=== PATIENT | female | born 1940 | race African-American/Black ===

== ENCOUNTER → 2016-04-04 | Outpatient (CLI) | payer MEDICARE ==
[~2016-04-04] MED LIST: ABAT125S SQ; AMLO10TA2 PO; ASPI325T70 PO; CALC1TAB PO; CETI10TA22 PO; CYCL10TA2 PO; FERR325T31 PO; HYDR200T PO; LISI-334 PO; MECL25TA3 PO; METO25TA4 PO; PRED5TAB PO; RANI150T2 PO; VITA1CAP PO; WARF5TAB7 PO
--- NOTE | 2016-04-04 15:17 | RAD ---
APPROVED REPORT Patient Location : OUT-PATIENT Indications CHRONIC VENOUS INSUFFICIENCY, GENIA GSV ABLATION DONE 10/2014 Deep System Deep Venous Thrombosis present : No Deep Venous Reflux present : No Findings Bilateral limited grayscale images of the common femoral vein and saphenofemoral junctions in the les ser saphenous veins did not reveal any obvious evidence of reflux. Spectral waveforms and color Dopp ler did not reveal any obvious reflux. The great saphenous vein appears to be atretic consistent wi th previous history of ablation. Critical Notification Critical Value: No <Conclusion> Suspect prior bilateral great saphenous vein ablations without any evidence of persistent reflux at t he level of the saphenofemoral junction and negative reflux in the bilateral lesser saphenous veins.
== END | disposition home or self-care (01) ==
LOC: US 12:37
PROVIDERS: ATTEND Internal Medicine Cardiovascular Disease
DX: I87.2 Venous insufficiency (chronic) (peripheral) (principal)
CPT/HCPCS: 93970

== ENCOUNTER 2016-06-15 22:03 | Emergency (ER) | payer MEDICARE ==
[~2016-06-15] VITALS: Ht 170.2 cm; Wt 99.8 kg
[2016-06-15] MEDS ORDERED: MORPHINE SULFATE 4 MG/ML DISP.SYRIN. IV ONE (23:00)
[2016-06-15] MEDS ORDERED: ONDANSETRON PF 4 MG/2 ML VIAL. IV ONE (23:00)
--- NOTE | 2016-06-15 23:16 | ED.ADGEN ---
Past Medical History Past Medical History: A-Fib, Hypertension, Other Additional Past Medical Histor: rheumatoid arth, headaches, lower back pain. Past Surgical History: Knee Replacement, Pacemaker, Other Additional Past Surgical Histo: bilat knee replacement, right hand tendon repair Alcohol Use: None Drug Use: None Adult General Chief Complaint Chief Complaint: MECHANICAL FALL HPI HPI Patient is a 75 year old -[place] female with history of hypertension, chronic A. fib currently on Coumadin who presents with accidental fall from standing. Patient was walking on a wood deck when she fell backwards landing in a flower bed. Patient was able to hold onto the deck and and gradually lowered herself down in controlled approximately one and a half feet to the floor bed but reports scraping her back on the wood decking. She dates that was controlled fall that happened several hours prior to ED arrival. Patient has taken oxycodone at home 5 hours ago with limited relief of symptoms. She denies hitting her head. She denies headache, neck pain chest pain shortness of breath. No other acute symptoms or complaints. Review of Systems Review of Systems Review symptoms as per history of present illness. All other review symptoms are negative. Current Medications Current Medications Current Medications Medications (Trade) Dose Ordered Sig/Cristian Start Time Stop Time Status Last Admin Dose Admin Morphine Sulfate 4 mg 1X ONCE 06/15/16 23:00 06/15/16 23:01 DC 06/15/16 23:28 4 MG Ondansetron HCl (Zofran) 4 mg 1X ONCE 06/15/16 23:00 06/15/16 23:01 DC 06/15/16 23:26 4 MG Allergies Allergies Allergies Coded Allergies Type Severity Reaction Last Updated Verified No Known Drug Allergies 02/24/13 No Physical Exam Physical Exam Constitutional: Well developed, well nourished, moderate discomfort secondary to pain, non-toxic appearance. HENT: Normocephalic, atraumatic, bilateral external ears [place]. Eyes: PERRL. Neck: Normal range of motion, no tenderness, supple. Cardiovascular:Heart rate regular rhythm, no murmur. Lungs & Thorax: Bilateral breath sounds clear to auscultation. Abdomen: Bowel sounds normal, soft, no tenderness. Skin: Warm, dry, no abrasions or contusions appreciated. Back: No tenderness, no midline tenderness. Right sick lumbar, paravertebral soft tissue tenderness to palpation reproducing patient complaint. Neurologic: Alert and oriented X 3, normal motor function, normal sensory function, no focal deficits noted. Psychologic: Affect normal, judgement normal, mood normal. Current Patient Data Vital Signs Vital Signs Date Time Temp Pulse Resp B/P (MAP) Pulse Ox O2 Delivery O2 Flow Rate FiO2 06/15/16 23:28 20 98 Room Air 06/15/16 22:20 98.7 89 217/100 (139) 98.7 EKG EKG [] Radiology/Procedures Radiology/Procedures [Chest x-ray 2 view: No acute disease Lumbar spine: No acute disease] Impressions: Musculoskeletal pain without evidence of acute bony injury Course & Med Decision Making Course & Med Decision Making Pertinent Labs and Imaging studies reviewed. (See chart for details) [Pain addressed. Patient's INR checked. Recommend continued supportive treatment with PCP follow-up as needed. Return precautions reviewed.] Dragon Disclaimer Dragon Disclaimer This electronic medical record was generated, in whole or in part, using a voice recognition dictation system. EDUARDO MENDOZA DO June 15, 2016 23:16
[2016-06-16 00:37] LABS: BASO # 0.1 x10^3/uL (0.0-0.2); BASO % 1 % (0-3); EOS % 0 % (0-3); HEMATOCRIT 33.5 % (36.0-47.0); HEMOGLOBIN 10.9 g/dL (12.0-15.5); LYMPH % 11 % (24-48); MEAN CORPUSCULAR HEMOGLOBIN 27 pg (25-35); MEAN CORPUSCULAR HGB CONC 32 g/dL (31-37); MEAN CORPUSCULAR VOLUME 83 fL (79-100); MONO % 5 % (0-9); NEUT % 84 % (31-73); PLATELET COUNT 251 x10^3/uL (140-400); RED BLOOD COUNT 4.03 x10^6/uL (3.50-5.40); RED CELL DISTRIBUTION WIDTH 17.2 % (11.5-14.5); WHITE BLOOD COUNT 9.3 x10^3/uL (4.0-11.0)
[2016-06-16 00:46] LABS: INR 2.6 (0.8-1.1)
[2016-06-16 01:15] VITALS: BP 190/87
--- NOTE | 2016-06-16 08:11 | RAD ---
Indication fall, pain. AP and lateral views of the lumbar spine were obtained as well as a coned view targeted to the lumbosacral junction. There is bony demineralization. There is disc space narrowing with associated degenerative endplate changes at L4-5. There is slight anterolisthesis of L4 relative to L5. Mild anterolisthesis of L3 relative to L2 and L2 relative to L1 is also noted. Vertebral height is well maintained. No acute finding is seen. Vascular calcification is noted IMPRESSION: Chronic changes. No acute finding seen
--- NOTE | 2016-06-16 08:13 | RAD ---
Indication chest pain. PA and lateral views of the chest were obtained and are compared to an exam 05/21/2013. Heart size is at the upper limits of normal but unchanged. Pulmonary vasculature is normal. Acute parenchymal infiltrate is not seen. There is no pleural fluid or pneumothorax. Bipolar cardiac pacing device is noted. A significant change compared to the previous exam is not seen. IMPRESSION: No acute or focal process. No significant change
--- NOTE | 2016-06-16 12:09 | EKG ---
[facility] [address] [place] [address] Test Date: 2016-06-15 Test Time: 22:34:06 Pat Name: MATTHIAS MILLER Department: Room: Gender: F Calculation Reviewer: TW EMT : 1940 Requested By: EDUARDO MENDOZA Order Number: [id number] Reading MD: Catarina Vail Measurements Intervals [place] Rate: 76 P: 5 [place]: 208 QRS: -34 QRSD: 142 T: 26 QT: 438 QTc: 498 Interpretive Statements SINUS RHYTHM VENTRICULAR PREMATURE COMPLEX(ES) LEFT ANTERIOR FASCICULAR BLOCK RIGHT BUNDLE BRANCH BLOCK BIFASCICULAR BLOCK Electronically Signed On 06-16-2016 18:23:10 CDT by Catarina Vail
== END 2016-06-16 01:18 | disposition home or self-care (01) ==
LOC: ER 22:03
DX: M79.1 Myalgia (principal); I48.91 Unspecified atrial fibrillation; I10 Essential (primary) hypertension; M06.9 Rheumatoid arthritis, unspecified; Z95.0 Presence of cardiac pacemaker; Z96.653 Presence of artificial knee joint, bilateral
CPT/HCPCS: 36415; 71020; 72100; 85027; 85610; 93005; 96374; 96375; 99285; J2270; J2405

== ENCOUNTER → 2017-04-28 | Outpatient (CLI) | payer MEDICARE | END | disposition home or self-care (01) | LOC: ECHO 09:13 | DX: I48.0 Paroxysmal atrial fibrillation (principal); I08.1 Rheumatic disorders of both mitral and tricuspid valves | CPT/HCPCS: 93306 ==

== ENCOUNTER 2017-06-19 10:14 | Observation (INO) | payer MEDICARE ==
[2017-06-19] MEDS: ASPIRIN CHEWABLE 81 MG TABLET. PO (11:39)
[2017-06-19 11:43] LABS: ADD MAN DIFF? NO
[2017-06-19 11:59] LABS: BASO % 0 % (0-3); EOS % 0 % (0-3); HEMATOCRIT 31.1 % (36.0-47.0); HEMOGLOBIN 10.3 g/dL (12.0-15.5); LYMPH # 1.7 x10^3/uL (1.0-4.8); LYMPH % 11 % (24-48); MEAN CORPUSCULAR HEMOGLOBIN 28 pg (25-35); MEAN CORPUSCULAR HGB CONC 33 g/dL (31-37); MEAN CORPUSCULAR VOLUME 84 fL (79-100); MONO # 1.7 x10^3/uL (0.0-1.1); MONO % 11 % (0-9); NEUT % 78 % (31-73); PLATELET COUNT 251 x10^3/uL (140-400); RED BLOOD COUNT 3.72 x10^6/uL (3.50-5.40); RED CELL DISTRIBUTION WIDTH 17.2 % (11.5-14.5); WHITE BLOOD COUNT 15.4 x10^3/uL (4.0-11.0)
[2017-06-19 12:00] LABS: ANION GAP 13 (6-14); BLOOD UREA NITROGEN 13 mg/dL (7-20); BUN/CREATININE RATIO 13 (6-20); CALCIUM 8.6 mg/dL (8.5-10.1); CARBON DIOXIDE 21 mmol/L (21-32); CHLORIDE 102 mmol/L (98-107); GFR 64.9; GLUCOSE 140 mg/dL (70-99); POTASSIUM 3.4 mmol/L (3.5-5.1); SODIUM 136 mmol/L (136-145)
[2017-06-19 12:06] LABS: ALBUMIN 2.9 g/dL (3.4-5.0); ALBUMIN/GLOBULIN RATIO 0.5 (1.0-1.7); ALK PHOS 68 U/L (46-116); ALT (SGPT) 47 U/L (14-59); AST (SGOT) 31 U/L (15-37); MAGNESIUM 1.7 mg/dL (1.8-2.4); TOTAL BILIRUBIN 1.2 mg/dL (0.2-1.0); TOTAL PROTEIN 8.4 g/dL (6.4-8.2)
[2017-06-19 12:07] LABS: INR 1.5 (0.8-1.1); PROTHROMBIN TIME PATIENT 17.6 SEC (11.7-14.0)
[2017-06-19 12:08] LABS: TROPONINI < 0.017 ng/mL (0.000-0.055)
[2017-06-19 12:14] LABS: NT-PRO BNP 3551 pg/mL (0-449)
[2017-06-19] MEDS ORDERED: CONTRAST GIVEN. MC (12:45)
[2017-06-19] MEDS: IOHEXOL 300 MG/ML 100ML VIAL. IV (13:01)
[2017-06-19] MEDS ORDERED: ONDANSETRON PF 4 MG/2 ML VIAL. IV (15:30)
[2017-06-19] MEDS ORDERED: traMADol 50 MG TABLET PO (15:30)
[2017-06-19] MEDS ORDERED: MORPHINE SULFATE 4 MG/ML DISP.SYRIN. IV (15:30)
[2017-06-19] MEDS ORDERED: hydrALAZINE 20 MG/ML VIAL. IVP (15:30)
[2017-06-19] MEDS ORDERED: ACETAMINOPHEN 325 MG TABLET. PO (15:30)
[2017-06-19] MEDS ORDERED: ALBUTEROL SULFATE 2.5 MG/3 ML NEBU. NEB (15:45)
[2017-06-19] MEDS ORDERED: MAGNESIUM SULFATE 2GM 50 ML IV (16:00)
[2017-06-19] MEDS ORDERED: WARFARIN 5 MG TABLET. PO (16:00)
[2017-06-19 16:25] LABS: TROPONINI 0.024 ng/mL (0.000-0.055)
[2017-06-19] MEDS: WARFARIN 2 MG TABLET. PO (16:33)
[2017-06-19] MEDS: FUROSEMIDE 40 MG/4 ML VIAL. IVP (16:34)
[2017-06-19] MEDS: MAGNESIUM SULFATE 2GM 50 ML IV (16:37)
[2017-06-19] MEDS: POTASSIUM CHLORIDE 20 MEQ TABLET.ER. PO (16:38)
[2017-06-19] MEDS: IPRATRPIUM/ALBUTEROL 0.5/2.5MG 3 ML NEBU. NEB ×2 (17:01→20:51)
[2017-06-19 17:24] LABS: THYROID STIM HORMONE (TSH) 1.196 uIU/mL (0.358-3.74)
[2017-06-19] MEDS ORDERED: FAMOTIDINE 20 MG TABLET. PO (21:00)
[2017-06-19] MEDS: LABETALOL HCL 200 MG TABLET PO (21:37)
[2017-06-20 04:19] LABS: ADD MAN DIFF? NO
[2017-06-20 04:21] LABS: BASO % 0 % (0-3); EOS # 0.2 x10^3/uL (0.0-0.7); EOS % 2 % (0-3); HEMATOCRIT 28.8 % (36.0-47.0); HEMOGLOBIN 9.7 g/dL (12.0-15.5); LYMPH # 1.5 x10^3/uL (1.0-4.8); LYMPH % 14 % (24-48); MEAN CORPUSCULAR HEMOGLOBIN 28 pg (25-35); MEAN CORPUSCULAR HGB CONC 34 g/dL (31-37); MEAN CORPUSCULAR VOLUME 83 fL (79-100); MONO # 1.1 x10^3/uL (0.0-1.1); MONO % 10 % (0-9); NEUT # 7.8 x10^3uL (1.8-7.7); NEUT % 74 % (31-73); PLATELET COUNT 241 x10^3/uL (140-400); RED BLOOD COUNT 3.47 x10^6/uL (3.50-5.40); RED CELL DISTRIBUTION WIDTH 17.4 % (11.5-14.5); WHITE BLOOD COUNT 10.6 x10^3/uL (4.0-11.0)
[2017-06-20 04:30] LABS: INR 1.7 (0.8-1.1); PROTHROMBIN TIME PATIENT 19.4 SEC (11.7-14.0)
[2017-06-20 04:47] LABS: CHOLESTEROL 162 mg/dL (0-200); HDLC 62 mg/dL (40-60); LDLC 92 mg/dL (0-100); NON-HDL CHOLESTEROL 100 mg/dL (0-129); TRIGLYCERIDES 40 mg/dL (0-150); VLDLC 8 mg/dL (0-40)
[2017-06-20 04:59] LABS: CHOLESTEROL/HDL RATIO 2.6
[2017-06-20 05:00] LABS: TROPONINI < 0.017 ng/mL (0.000-0.055)
[2017-06-20] MEDS: IPRATRPIUM/ALBUTEROL 0.5/2.5MG 3 ML NEBU. NEB ×4 (08:15→19:09)
[2017-06-20 08:16] LABS: ANION GAP 9 (6-14); BLOOD UREA NITROGEN 18 mg/dL (7-20); CALCIUM 8.5 mg/dL (8.5-10.1); CARBON DIOXIDE 25 mmol/L (21-32); CHLORIDE 106 mmol/L (98-107); CREATININE 1.2 mg/dL (0.6-1.0); GFR 52.6; GLUCOSE 128 mg/dL (70-99); POTASSIUM 3.8 mmol/L (3.5-5.1); SODIUM 140 mmol/L (136-145)
[2017-06-20] MEDS: FERROUS SULFATE 325 MG TABLET. PO (08:27)
[2017-06-20] MEDS: PANTOPRAZOLE 40 MG TABLET.DR. PO (08:27)
[2017-06-20] MEDS: LABETALOL HCL 200 MG TABLET PO ×2 (08:27→22:08)
[2017-06-20] MEDS: CHOLECALCIFEROL (VITAMIN D3) 1,000 UNIT TABLET PO (08:28)
[2017-06-20] MEDS: ASPIRIN ENTERIC COATED 325 MG TABLET.DR. PO (08:29)
[2017-06-20] MEDS: VITAMIN B COMPLEX TABLET. PO (08:29)
[2017-06-20] MEDS: CALCIUM CARB/VIT D3 500/200 TABLET. PO (08:29)
[2017-06-20] MEDS: CETIRIZINE HCL 10 MG TABLET. PO (08:29)
[2017-06-20] MEDS: amLODIPine BESYLATE 10 MG TABLET PO (08:30)
[2017-06-20] MEDS: LOSARTAN POTASSIUM 50 MG TABLET. PO (08:30)
[2017-06-20] MEDS: FUROSEMIDE 40 MG/4 ML VIAL. IVP ×2 (08:31→14:48)
[2017-06-20] MEDS ORDERED: HYDROXYCHLOROQUINE 200 MG TABLET PO (09:00)
[2017-06-20] MEDS ORDERED: MECLIZINE HCL 12.5 MG TABLET. PO (09:00)
[2017-06-20] MEDS ORDERED: LISINOPRIL 20 MG TABLET PO (09:00)
[2017-06-20] MEDS ORDERED: predniSONE 5 MG TABLET PO (09:00)
[2017-06-20] MEDS ORDERED: predniSONE 20 MG TABLET PO (09:00)
[2017-06-20] MEDS ORDERED: METOPROLOL TART IMMED RELEASE 25 MG TABLET. PO (09:00)
[2017-06-20] MEDS: REGADENOSON 0.4 MG/5 ML DISP.SYRIN. IV (12:40)
[2017-06-20 16:17] LABS: BILIRUBIN,URINE NEGATIVE (NEG); CLARITY,URINE CLEAR; COLOR,URINE YELLOW; GLUCOSE,URINE NEGATIVE (NEG); NITRITE,URINE NEGATIVE (NEG); PH,URINE 5.5; PROTEIN,URINE NEGATIVE (NEG-TRACE); UROBILINOGEN,URINE 0.2 mg/dL (0.2 mg/dL)
[2017-06-20 16:33] LABS: BACTERIA,URINE FEW /HPF (0-FEW); RBC,URINE 0 /HPF (0-2); SQUAMOUS EPITHELIAL CELL,UR OCC /LPF; WBC,URINE OCC /HPF (0-4)
[2017-06-20] MEDS: WARFARIN 2 MG TABLET. PO (17:21)
[2017-06-20] MEDS ORDERED: BENZONATATE 100 MG CAPSULE. PO (20:00)
[2017-06-20] MEDS ORDERED: guaiFENesin ORAL 200 MG/10 ML LIQUID. PO (21:15)
[2017-06-20] MEDS: guaiFENesin DM 200MG/20MG 10 ML SYRUP PO (22:07)
[2017-06-21 04:52] LABS: ADD MAN DIFF? NO
[2017-06-21 05:03] LABS: BASO % 0 % (0-3); EOS # 0.4 x10^3/uL (0.0-0.7); EOS % 4 % (0-3); HEMATOCRIT 26.9 % (36.0-47.0); HEMOGLOBIN 9.2 g/dL (12.0-15.5); LYMPH # 1.3 x10^3/uL (1.0-4.8); LYMPH % 14 % (24-48); MEAN CORPUSCULAR HEMOGLOBIN 28 pg (25-35); MEAN CORPUSCULAR HGB CONC 34 g/dL (31-37); MEAN CORPUSCULAR VOLUME 83 fL (79-100); MONO # 0.7 x10^3/uL (0.0-1.1); MONO % 8 % (0-9); NEUT # 6.6 x10^3uL (1.8-7.7); NEUT % 73 % (31-73); PLATELET COUNT 240 x10^3/uL (140-400); RED BLOOD COUNT 3.23 x10^6/uL (3.50-5.40); RED CELL DISTRIBUTION WIDTH 17.1 % (11.5-14.5)
[2017-06-21] MEDS: DOCUSATE SODIUM 100 MG CAPSULE. PO (05:06)
[2017-06-21 05:29] LABS: ANION GAP 10 (6-14); BLOOD UREA NITROGEN 21 mg/dL (7-20); CALCIUM 8.2 mg/dL (8.5-10.1); CARBON DIOXIDE 24 mmol/L (21-32); CHLORIDE 103 mmol/L (98-107); CREATININE 1.2 mg/dL (0.6-1.0); GFR 52.6; GLUCOSE 137 mg/dL (70-99); POTASSIUM 3.8 mmol/L (3.5-5.1); SODIUM 137 mmol/L (136-145)
[2017-06-21 05:30] LABS: INR 1.4 (0.8-1.1); PROTHROMBIN TIME PATIENT 16.7 SEC (11.7-14.0)
[2017-06-21] MEDS: CETIRIZINE HCL 10 MG TABLET. PO (08:01)
[2017-06-21] MEDS: CALCIUM CARB/VIT D3 500/200 TABLET. PO (08:01)
[2017-06-21] MEDS: CHOLECALCIFEROL (VITAMIN D3) 1,000 UNIT TABLET PO (08:01)
[2017-06-21] MEDS: PANTOPRAZOLE 40 MG TABLET.DR. PO (08:01)
[2017-06-21] MEDS: FERROUS SULFATE 325 MG TABLET. PO (08:02)
[2017-06-21] MEDS: ASPIRIN ENTERIC COATED 325 MG TABLET.DR. PO (08:02)
[2017-06-21] MEDS: LOSARTAN POTASSIUM 50 MG TABLET. PO (08:03)
[2017-06-21] MEDS: LABETALOL HCL 200 MG TABLET PO (08:05)
[2017-06-21] MEDS: amLODIPine BESYLATE 10 MG TABLET PO (08:06)
[2017-06-21] MEDS: VITAMIN B COMPLEX TABLET. PO (08:13)
[2017-06-21] MEDS: FUROSEMIDE 40 MG TABLET. PO (08:13)
[2017-06-21] MEDS: IPRATRPIUM/ALBUTEROL 0.5/2.5MG 3 ML NEBU. NEB ×2 (09:01→12:00)
[2017-06-21] MEDS ORDERED: BUDESONIDE 0.5 MG/2 ML NEBU. NEB (20:00)
== END 2017-06-21 14:36 | disposition home or self-care (01) ==
LOC: ER 10:14 → 2 SOUTH 12:45
DX: R07.89 Other chest pain (principal); D64.9 Anemia, unspecified; M06.9 Rheumatoid arthritis, unspecified; I50.43 Acute on chronic combined systolic (congestive) and diastolic (congestive) heart failure; I48.0 Paroxysmal atrial fibrillation; I11.0 Hypertensive heart disease with heart failure; E66.01 Morbid (severe) obesity due to excess calories; J40 Bronchitis, not specified as acute or chronic; E87.6 Hypokalemia; E83.42 Hypomagnesemia; Z96.653 Presence of artificial knee joint, bilateral; Z79.52 Long term (current) use of systemic steroids; Z82.49 Family history of ischemic heart disease and other diseases of the circulatory system; Z83.3 Family history of diabetes mellitus; Z68.34 Body mass index [BMI] 34.0-34.9, adult; Z79.01 Long term (current) use of anticoagulants; Z79.82 Long term (current) use of aspirin
CPT/HCPCS: 36415; 71045; 71275; 78452; 80048; 80053; 80061; 81001; 83735; 83880; 84443; 84484; 85025; 85379; 85610; 87040; 87086; 93005; 93017; 93308; 94640; 94760; 96365; 96366; 96367; 96374; 96375; 96376; 97162-GP; 97165-GO; 99285-25; A9500; G0378; G0379; G8978-CK-GP; G8979-CI-GP; G8987-CJ-GO; G8989-CJ-GO; J1940; J1956; J2785; J3475; J7620; Q9967

== ENCOUNTER 2017-08-05 08:04 | Outpatient (CLI) | payer MEDICARE ==
[2017-08-05 09:16] LABS: HEMATOCRIT 31.8 % (36.0-47.0); HEMOGLOBIN 10.7 g/dL (12.0-15.5); MEAN CORPUSCULAR HEMOGLOBIN 28 pg (25-35); MEAN CORPUSCULAR HGB CONC 34 g/dL (31-37); MEAN CORPUSCULAR VOLUME 83 fL (79-100); PLATELET COUNT 305 x10^3/uL (140-400); RED BLOOD COUNT 3.85 x10^6/uL (3.50-5.40); RED CELL DISTRIBUTION WIDTH 17.2 % (11.5-14.5); WHITE BLOOD COUNT 4.8 x10^3/uL (4.0-11.0)
[2017-08-05 09:27] LABS: INR 2.9 (0.8-1.1); PROTHROMBIN TIME PATIENT 29.4 SEC (11.7-14.0)
[2017-08-05 09:36] LABS: ANION GAP 8 (6-14); BLOOD UREA NITROGEN 14 mg/dL (7-20); CARBON DIOXIDE 28 mmol/L (21-32); CHLORIDE 108 mmol/L (98-107); GFR 64.9; GLUCOSE 125 mg/dL (70-99); POTASSIUM 4.8 mmol/L (3.5-5.1); SODIUM 144 mmol/L (136-145)
[2017-08-05] MEDS ORDERED: LIDOCAINE 2% 20 ML VIAL. (09:41)
[2017-08-05] MEDS ORDERED: IODIXANOL 320 MG/ML 100 ML VIAL. (09:41)
[2017-08-05] MEDS: MIDAZOLAM HCL/PF 2 MG/2 ML VIAL. IV (09:45)
[2017-08-05] MEDS: fentaNYL PF VIAL 100 MCG/2 ML VIAL IV (09:45)
[2017-08-05] MEDS ORDERED: NITROGLYCERIN 200 MCG/2 ML SYRINGE FOR CATH/VASC LAB. (09:46)
[2017-08-05] MEDS ORDERED: CONTRAST GIVEN. MC (10:00)
[2017-08-05] MEDS: NITROGLYCERIN 200 MCG/2 ML SYRINGE FOR CATH/VASC LAB. IART (10:22)
[2017-08-05] MEDS: VERAPAMIL 5 MG/2 ML VIAL. IART (10:23)
[2017-08-05] MEDS: IODIXANOL 320 MG/ML 100 ML VIAL. IART (10:23)
[2017-08-05] MEDS: HEPARIN for IV BOLUS 10,000 UNIT/10 ML VIAL. IART (10:26)
[2017-08-05] MEDS ORDERED: IV 1/2 NORMAL SALINE 1,000 ML IV (11:00)
== END 2017-08-05 12:45 | disposition home or self-care (01) ==
LOC: CCL 08:04
DX: I20.0 Unstable angina (principal); I49.5 Sick sinus syndrome; I48.0 Paroxysmal atrial fibrillation; M06.9 Rheumatoid arthritis, unspecified; I87.2 Venous insufficiency (chronic) (peripheral); I11.0 Hypertensive heart disease with heart failure; I50.43 Acute on chronic combined systolic (congestive) and diastolic (congestive) heart failure; J40 Bronchitis, not specified as acute or chronic; Z95.0 Presence of cardiac pacemaker; Z96.653 Presence of artificial knee joint, bilateral; E66.01 Morbid (severe) obesity due to excess calories; Z68.34 Body mass index [BMI] 34.0-34.9, adult; Z79.01 Long term (current) use of anticoagulants; Z79.82 Long term (current) use of aspirin; Z79.52 Long term (current) use of systemic steroids; Z83.3 Family history of diabetes mellitus; Z82.49 Family history of ischemic heart disease and other diseases of the circulatory system
CPT/HCPCS: 36415; 80048; 85027; 85610; 93458; 99152; 99153; C1769; C1892; J1644; J2250; J3010; J3490

== ENCOUNTER → 2018-09-09 | Outpatient (CLI) | payer MEDICARE ==
[2017-08-05 12:10] VITALS: BP 119/86
[~2018-09-09] MED LIST changes: -AMLO10TA2 PO; +AMLO10TA8 PO; +ASPI325T11 PO; +CHOL10003 PO; +FERR-36 PO; -FERR325T31 PO; +FURO40TA4 PO; +GUAI5SYR PO; -HYDR200T PO; +HYDR200T71 PO; +LABE200T4 PO; +LOSA-73 PO; +OMEP20TA8 PO; +WARF-31 PO; +WARF2TAB96 PO; -WARF5TAB7 PO
--- NOTE | 2018-09-09 11:37 | CARD ---
MR#: [id number] Date of Study: 09/09/2018 Ordering Physician: CAMMIE LAWSON, Referring Physician: CAMMIE LAWSON Tech: Jacqui Stephens RDCS APPROVED REPORT EXAM: Two-dimensional and M-mode echocardiogram with Doppler and color Doppler. Other Information Quality : AverageHR: 67bpm Rhythm : Other INDICATION SSS 2D DIMENSIONS RVDd3.5 (2.9-3.5cm)Left Atrium(2D)3.5 (1.6-4.0cm) IVSd1.4 (0.7-1.1cm)Aortic Root(2D)3.0 (2.0-3.7cm) LVDd4.2 (3.9-5.9cm)LVOT Diameter1.8 (1.8-2.4cm) PWd1.0 (0.7-1.1cm)LVDs2.5 (2.5-4.0cm) FS (%) 40.4 %SV55.8 ml LVEF(%)70.0 (>50%) Aortic Valve AoV Peak Cullen.143.4cm/sAoV VTI34.0cm AO Peak GR.8.2mmHgLVOT Peak Cullen.125.8cm/s AO Mean GR.5mmHgAVA (VMAX)2.26cm2 Mitral Valve MV E Bkhlriot568.6cm/sMV E Peak Gr.6mmHg MV DECEL [id number] A Tijjarwr103.9cm/s MV E Mean Gr.4mmHgE/A Ratio1.0 Pulmonary Valve PV Peak Vzhptzzi53.2cm/s Tricuspid Valve TR P. Clesippb184rp/sRAP IXEVUJTI3zzKa TR Peak Gr.28vqZaOJGX86ckGz LEFT VENTRICLE The left ventricle is normal size. Proximal septal thickening is noted. The left ventricular systolic function is normal. The Ejection Fraction is 65-70%. There is normal LV segmental wall motion. Trans mitral Doppler flow pattern is Grade II-pseudonormal filling dynamics. RIGHT VENTRICLE The right ventricle is normal size. There is normal right ventricular wall thickness. The right ventr icular systolic function is normal. ATRIA The left atrium size is normal. The right atrium size is normal. The interatrial septum is intact wit h no evidence for an atrial septal defect or patent foramen ovale as noted on 2-D or Doppler imaging. AORTIC VALVE The aortic valve is calcified but opens well. The aortic valve is trileaflet. Doppler and Color Flow revealed trace aortic regurgitation. There is no significant aortic valvular stenosis. There is no ao rtic valvular vegetation. MITRAL VALVE Mitral annular calcification is mild to moderate. There is no evidence of mitral valve prolapse. Ther e is no mitral valve stenosis. Doppler and Color-flow revealed mild mitral regurgitation. TRICUSPID VALVE The tricuspid valve is normal in structure and function. Doppler and Color Flow revealed trace tricus pid regurgitation. The PA pressure was estimated at 32 mmHg. There is no tricuspid valve prolapse or vegetation. There is no tricuspid valve stenosis. PULMONIC VALVE The pulmonic valve is not well visualized. GREAT VESSELS The aortic root is normal in size. The ascending aorta is normal in size. The IVC is normal in size a nd collapses >50% with inspiration. PERICARDIAL EFFUSION There is no evidence of significant pericardial effusion. Critical Notification Critical Value: No <Conclusion> The left ventricular systolic function is normal. The Ejection Fraction is 65-70%. There is normal LV segmental wall motion. Mild mitral regurgitation. Trace tricuspid regurgitation. The PA pressure was estimated at 32 mmHg. There is no evidence of significant pericardial effusion. Signed by : Cammie Lawson, Electronically Approved : 09/09/2018 11:36:48
== END | disposition home or self-care (01) ==
LOC: ECHO 10:23
PROVIDERS: ATTEND Internal Medicine Cardiovascular Disease
DX: I49.5 Sick sinus syndrome (principal); I08.0 Rheumatic disorders of both mitral and aortic valves
CPT/HCPCS: 93306

== ENCOUNTER → 2018-09-28 | Outpatient (CLI) | payer MEDICARE ==
[2017-08-05 12:10] VITALS: BP 119/86
--- NOTE | 2018-09-29 11:18 | RAD ---
MR#: [id number] Date of Study: 09/28/2018 Ordering Physician: CAMMIE CARRASCO, Referring Physician: CAMMIE CARRASCO, Tech: Dewey Aldana MBA, RDMS, RVT, RDCS, RTR APPROVED REPORT Patient Location: OUT-PATIENT Indications Uncontrolled HTN Renal Artery Doppler Right Renal Artery Left Renal Arter y Proximal Proximal 110.0/17.0 cm/sec Mid 190.0/44.0 cm/secMid 115.0/25.0 cm/sec Distal 116.0/20.0 cm/secDistal 115.0/27.0 cm/sec Renal/Aorta Ratio 1.21Renal/Aorta Ratio 11.00 Prox. Resistive Index Prox. Resistive Index 0.84 Mid Resistive Index 0.77Mid Resistive Index 0.78 Distal Resistive Index 0.82Distal Resistive Index 0.77 Rt. Segmental A. 24.0/7.0 cm/secLt. Segmental A. 46.0/9.0 cm/sec Renal Measurements RightLeft Kidney Length9.9 cm cmKidney Length Right Additional FindingsLeft Additional Findings Aortic Doppler VelocityWaveform Mid. Aorta 157.0 cm/sec Findings Grayscale images of the aorta and renal arteries were limited due to bowel gas. Grossly no obvious renal artery stenosis is noted. Normal velocities are obtained in the middle and d istal right renal artery in the proximal middle and distal left renal artery. Normal aortic velocitie s are noted. Normal renal to aortic ratios. Bilateral kidney sizes grossly within normal limits. Critical Notification Critical Value: No <Conclusion> 1. No significant renal artery stenosis. Signed by : Rodolfo Baird, Electronically Approved : 09/29/2018 11:17:59
== END | disposition home or self-care (01) ==
LOC: US 11:00
PROVIDERS: ATTEND Internal Medicine Cardiovascular Disease
DX: I10 Essential (primary) hypertension (principal)
CPT/HCPCS: 93975

== ENCOUNTER → 2019-09-22 | Outpatient (CLI) | payer MEDICARE ==
[2017-08-05 12:10] VITALS: BP 119/86
[~2019-09-22] MED LIST changes: -CETI10TA22 PO; +CETI10TA24 PO; +MECL-75 PO; -MECL25TA3 PO
--- NOTE | 2019-09-23 11:23 | CARD ---
MR#: [id number] Date of Study: 09/22/2019 Ordering Physician: CAMMIE CARRASCO, Referring Physician: CAMMIE CARRASCO, Tech: Barbara Maurer APPROVED REPORT EXAM: Two-dimensional and M-mode echocardiogram with Doppler and color Doppler. Other Information Quality : AverageHR: 85bpm INDICATION Arrhythmia Sick Sinus Syndrome Surgery/Intervention Pacemaker: RISK FACTORS Hypertension 2D DIMENSIONS RVDd3.3 (2.9-3.5cm)Left Atrium(2D)3.0 (1.6-4.0cm) IVSd1.0 (0.7-1.1cm)Aortic Root(2D)3.1 (2.0-3.7cm) LVDd4.5 (3.9-5.9cm)LVOT Diameter2.0 (1.8-2.4cm) PWd1.3 (0.7-1.1cm)LVDs3.0 (2.5-4.0cm) FS (%) 31.6 %SV54.1 ml LVEF(%)59.8 (>50%) Aortic Valve AoV Peak Cullen.140.6cm/sAoV VTI28.1cm AO Peak GR.7.9mmHgLVOT Peak Cullen.125.2cm/s LVOT VTI 26.22cmAO Mean GR.5mmHg NAVI (VMAX)2.13ig5ASP (VTI)3.02cm2 Mitral Valve MV E Btppowdz515.2cm/sMV E Peak Gr.141mmHg MV DECEL [id number] A Shxopusp727.7cm/s MV E Mean Gr.4mmHgMV UEL43du E/A Ratio1.0MVA (PHT)3.19cm2 TDI E/Lateral E'11.5E/Medial E'14.4 Pulmonary Valve PV Peak Vdfeaghn89.1cm/sPV Peak Grad.4mmHg Tricuspid Valve TR P. Wfkaydzz035qg/sRAP TVAMFUBW0pfDj TR Peak Gr.90wnDsSIHI45flLl LEFT VENTRICLE The left ventricle is normal size. There is borderline to mild concentric left ventricular hypertroph y. The left ventricular systolic function is mildly reduced. EF 45%. Septal motion suggestive of cond uction defect. The distal LV is moderately hypokinetic. Transmitral Doppler flow pattern is Grade I-a bnormal relaxation pattern. RIGHT VENTRICLE The right ventricle is normal size. There is normal right ventricular wall thickness. The right ventr icular systolic function is normal. There is a pacemaker lead in the right ventricle. ATRIA The left atrium is mildly dilated. The right atrium is mildly dilated. The interatrial septum is inta ct with no evidence for an atrial septal defect or patent foramen ovale as noted on 2-D or Doppler im aging. AORTIC VALVE The aortic valve is calcified but opens well. Doppler and Color Flow revealed no significant aortic r egurgitation. There is no significant aortic valvular stenosis. Calculated aortic valve area is 2.8 c m2 with maximum pressure gradient of 8 mmHg and mean pressure gradient of 5 mmHg. MITRAL VALVE The mitral valve is mildly to moderately thickened. There is no evidence of mitral valve prolapse. Mi tral Valve mean gradient is 4.4 mmHg suggestive of mild stenosis. Doppler and Color-flow revealed tra ce to mild mitral regurgitation. TRICUSPID VALVE The tricuspid valve is normal in structure and function. Doppler and Color Flow revealed trace tricus pid regurgitation with an estimated PAP of 31 mmHg. There is no tricuspid valve stenosis. PULMONIC VALVE The pulmonic valve is not well visualized. Doppler and Color Flow revealed trace pulmonic valvular re gurgitation. There is no pulmonic valvular stenosis. GREAT VESSELS The aortic root is normal in size. The IVC is normal in size and collapses >50% with inspiration. PERICARDIAL EFFUSION There is no evidence of significant pericardial effusion. Critical Notification Critical Value: No <Conclusion> Septal motion suggestive of conduction defect. The distal LV is moderately hypokinetic. The left ventricular systolic function is mildly reduced. EF 45%. There is a pacemaker lead in the right ventricle. Mitral Valve mean gradient is 4.4 mmHg suggestive of mild stenosis. Signed by : Rodolfo Baird, Electronically Approved : 09/23/2019 11:23:18
== END | disposition home or self-care (01) ==
LOC: ECHO 10:58
PROVIDERS: ATTEND Internal Medicine Cardiovascular Disease
DX: I08.0 Rheumatic disorders of both mitral and aortic valves (principal); I49.5 Sick sinus syndrome; Z95.0 Presence of cardiac pacemaker
CPT/HCPCS: 93306

== ENCOUNTER → 2019-10-19 | Outpatient (CLI) | payer MEDICARE ==
[2017-08-05 12:10] VITALS: BP 119/86
[~2019-10-19] MED LIST changes: -CETI10TA24 PO; +CETI10TA74 PO; +REGADENOSON 0.4 MG/5 ML DISP.SYRIN. IV ONE
--- NOTE | 2019-10-19 13:47 | RAD ---
MR#: [id number] Date of Study: 10/19/2019 Ordering Physician: CAMMIE CARRASCO, Referring Physician: NEELAM ALEXANDER Tech: JELENA Sofia, ARRRitika (R) (N) APPROVED REPORT Test Type: Pharmacological Stress Nurse/Tech: Jessie Martinez R.N. Test Indications: paroxysmal afib Cardiac History: afib,htn, PPM Medications: See Electronic Medical Record Medical History: See Electronic Medical Record Resting ECG: vpaced Resting Heart Rate: 74 bpm Resting Blood Pressure: 189/89mmHg Pretest Chest Pain: No chest pain Nurse/Tech Notes S1S2, lungs cta Consent: The procedure was explained to the patient in lay terms. Informed consent was witnessed. Evan eout was entered into [employer]. History and Stress Test performed by RT Tyler (R) (N) Pharm. Details Pharmacologic stress testing was performed using 0.4mg per 5ml of regadenoson given intravenously ove r 7-10 seconds. Stress Symptoms SOA POST EXERCISE Reason for Termination: Infusion complete Max HR: 84 bpm Max Blood Pressure: 179/84mmHg Blood Pressure response to exercise: Normal blood pressure response during stress. Heart Rate response to exercise: wnl Chest Pain: No. Arrhythmia: No. occ. pvc noted ST Change: No. INTERPRETATION Stress EKG Conclusion: Non-diagnostic EKG due to pacing artifact Imaging Protocol IMAGE PROTOCOL: Rest Tc-99m/stress Tc-99m 1 day Rest: Stress: Viability: Radiopharm.Tc99m TcahvhyyeFh42g Sestamibi Bfxj87kBj 33mCi Img Date 10/19/2019 10/19/2019 Rest Admin Site:IV - Left HandAdministrator:RT Tyler (R)(N) Stress Admin Site: IV - Left HandAdministrator: RT Tyler (Pollo)(N) STRESS DATA End Diast. Vol.119.0mlAv. Heart Rate77.0bpm End Syst. Vol.36.0mlCO Index BSA0.0L/min Myocardial Hhos037.0gEject. Iebvlhfj02.0% Stress Rates Pk. Fill Rate3.91EDV/secLVtime Pk. Fill 199.66msec Pk. Empty Rate3.98ESV/secLVtime Pk. Elhyi416.50msec /3 Pk. Fill1.33EDV/sec Stress Scores Regional WT0.00Summed WT10.00 Regional WM0.00Summed WM1.00 LV Perfusion There is a small FIXED inferior wall defect without active ischema. Wall Motion Normal wall motion. EF > 55% LV Perf. Quant 17 Seg. SSS7.00 17 Seg. SRS6.00 17 Seg. SDS3.00 Stress Defect Extent (% LAD)4.40Rest Defect Extent (% LAD)8.80Rev. Defect Extent (% LAD)1.90 Stress Defect Extent (% LCX) 23.80Rest Defect Extent (% LCX)0.00Rev. Defect Extent (% LCX)21.30 Stress Defect Extent (% RCA)25.60Rest Defect Extent (% RCA)16.70Rev. Defect Extent (% RCA)8.90 Stress Defect Extent (% GONZALO)15.20Rest Defect Extent (% GONZALO)10.90Rev. Defect Extent (% GONZALO)8.30 Other Information Quality:Average Risk Assessment: Low Risk Conclusion 1. Non-diagnostic EKG due to pacing artifact 2. Fixed inferior wall defect without active ischemia. 3. Normal EF at > 55% 4. Low risk study Signed by : Rodolfo Baird, Electronically Approved : 10/19/2019 13:46:48
== END | disposition home or self-care (01) ==
LOC: NM 09:04
PROVIDERS: ATTEND Internal Medicine Cardiovascular Disease
DX: I48.91 Unspecified atrial fibrillation (principal); I10 Essential (primary) hypertension
CPT/HCPCS: 78452; 93017; A9500; J2785

== ENCOUNTER → 2020-04-18 | Outpatient (CLI) | payer MEDICARE ==
[2017-08-05 12:10] VITALS: BP 119/86
[~2020-04-18] MED LIST changes: +AMLO-187 PO; -AMLO10TA8 PO; +FURO-69 PO; +HYDR200T5 PO; -LISI-334 PO; +LISI20TA18 PO; +OXYC1TAB22 PO; -REGADENOSON 0.4 MG/5 ML DISP.SYRIN. IV ONE; +TURM500C4 PO; +UBID10CA5 PO; +WARF2.5T71 PO
--- NOTE | 2020-04-18 15:03 | PDOC1 ---
INITIAL PAIN CONSULT DATE OF SERVICE: DOS: DATE: 04/18/20 TIME: 14:54 CHIEF COMPLAINT: Chief Complaint: Low back and right lower extremity pain HISTORY OF PRESENT ILLNESS: 79-year-old female presents history of pain in the low back right lower extremity for many years worse over the past few months as she is getting ready to have a right knee revision and has had significant pain in the low back rating the right posterior gluteus posterior lateral thigh lateral anterior thigh anteromedial thigh medial knee medial lower leg and into the foot involving the toes on the right side. Patient reports left side is nontender and is much worse on the right with walking standing changing position especially getting up from seated position or getting out of bed first thing in the morning when she standing the pain is excruciating. Patient reports it does keep her up at night at least once or twice wakens her from sleep does not affect her bowel bladder control as she has some stress incontinence pre- existing. Patient not had any recent physical therapies no recent chiropractic treatments or other modalities except for oxycodone which generally helps her in the past but most recently patient reports is making her feel dizzy and nauseous. Patient not taken it for several days because of this. Patient has had CT scan and lumbar spine films in the past showing degenerative disc disease with spinal stenosis at the L4-5 and L5-S1 levels. Patient reports the pain is now constant intermittent intensity but always present radiating to the right lower extremity is described aching and burning at times as well as cramping in the leg as well. Patient reports a disability rating 0-10 10 being the worst is a 10 with recreational activities 9 with social activity and life support activities and 8 with self-care activities. Patient presents in a wheelchair today and is using a cane when she ambulates and holds it in her right hand. PAST MEDICAL HISTORY: PMH: Hypertension, arthritis, osteoporosis, cataracts PREVIOUS SURGERIES: Past Surgical Hx: Cataract extraction bilaterally, pacemaker placement, bilateral knee replaceme nts, right hand surgery. CURRENT MEDICATIONS: Current Meds: Active Scripts Medications Dose Route/Sig Max Daily Dose Days Date Category Hydroxychloroquine Sulfate 200 Mg Tablet 200 Mg PO DAILY 04/18/20 Reported Turmeric 500 mg Capsule (Turmeric/Turmeric Root Extract) 1 Each Capsule 3 Each PO DAILY 04/18/20 Reported Co Q-10 (Ubidecarenone) 10 Mg Capsule 1 Cap PO DAILY 30 04/18/20 Reported Percocet 10-325 Mg Tablet (Oxycodone/Acetaminophen) 1 Each Tablet 1 Tab PO PRN Q4-6HRS PRN MDD 6 Tablet(s) 5 04/18/20 Reported Warfarin Sodium 2.5 Mg Tablet 2.5 Mg PO DAILY 04/18/20 Reported Warfarin Sodium 5 Mg Tablet 5 Mg PO Friday04/18/20 Reported Lasix (Furosemide) 20 Mg Tablet 10 Mg PO DAILY 04/18/20 Reported Omeprazole 20 Mg Tablet.dr 20 Mg PO DAILY 06/20/17 Reported Losartan Potassium 50 Mg Tablet 50 Mg PO DAILY 06/20/17 Reported Labetalol Hcl 200 Mg Tablet 1 Tab PO BID 06/19/17 Reported ALLERGIES; Allergies: Coded Allergies: I S O L A T I O N *CONTACT* (Verified Allergy, Unknown, 06/20/16) mrsa No Known Medication Allergies (Verified Allergy, Unknown, 06/18/16) FAMILY HISTORY: Family Hx: No major medical problems or conditions that she is aware of. SOCIAL HISTORY: Social Hx: Patient does not catherine alcohol does not smoke does not use any illegal illicit or recreational drugs is has 2 children lives at home lives locally in [facility] and is currently retired. REVIEW OF SYSTEMS: ROS: Positive for those items mentioned in history of present illness, all systems are reviewed, otherwise negative , with exception of right knee joint pain, and are complete full and well-documented on patient's chart. PHYSICAL EXAM: VS: Blood pressure is 138/87 pulse 78 respirations 18 temperature 98.1 F height is 5 feet 7 inches weight is 190 pounds PE: PHYSICAL EXAMINATION: GENERAL: The patient is awake, alert, oriented, appropriate, very pleasant demeanor, and accompanied by her granddaughter. HEENT: Shows normocephalic, atraumatic. Extraocular movements are intact and symmetrical. Oral cavity: Mucous membranes moist and pink. NECK: Shows anterior throat supple without palpable lymphadenopathy noted. Swallow reflex symmetrical. CHEST: Shows normal on inspection. Pacemaker is noted in the left subclavian distribution, breath sounds are clear bilaterally, distant but no rales rhonchi or wheezes auscultated. HEART: Shows S1, S2 clear. No murmurs auscultated. ABDOMEN: Soft, nontender, nondistended, obese. No palpable organomegaly is noted. No rebound or guarding demonstrated. BACK: Shows spine grossly in the midline. Normal-appearing cervical lordotic curvature. There is increased thoracic kyphosis, some minor flattening of the lumbar lordotic curvature. Lumbar paraspinous muscles show symmetrical on inspection, on palpation shows some moderate tenderness diffusely throughout the upper, middle and lower distribution of the paraspinous muscles bilaterally and also into the lower thoracic paraspinous musculature, firm and tender, but without specific trigger points, without radiation of pain. The patient has good rotational motion of the lumbar spine, both laterally as well as extension and flexion without significant difficulty. No tenderness over the spinous processes, sacrum or sacroiliac regions. EXTREMITIES: Lower extremities show deep tendon reflexes 1+ in the patellar and tendo calcaneus tendons. Motor exam is 4 on a scale of 5 with right dorsiflexion, extension, quadriceps and hamstring flexion and 5/5 on the left. Peripheral pulses are 1+ posterior tibial. No peripheral edema is noted bilaterally. Lower extremities are warm and dry to touch, equal in color and ap pearance. Straight leg raise noted to be positive on the right about 40 degrees, left side is negative. Gaenslen's and Ar's maneuvers are negative bilaterally as well. The patient is able to stand, needs assistance using the arms of the chair to stand from a seated position and is using a cane in her right hand to ambulate significantly favors the right lower extremity with an antalgic gait.. SKIN: Shows warm and dry, good turgor. No edema. No sores, rashes or bruising throughout. IMPRESSION: Impression: 79-year-old female with long history many years low back and right lower extremity pain in a radicular fashion Lumbar spine films as noted Hypertension Arthritis Pacemaker placement Bilateral knee joint replacements Plan: After discussed with the patient patient's granddaughter who accompanied her to her visit today, including conservative medical management physical therapies interventional techniques. She would like to pursue interventional techniques. We discussed a lumbar transforaminal injection at the right L4-5 level using description as well as anatomical model to describe the procedure. 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 If this is deemed safe and appropriate will have her hold the Coumadin and return for right L4-5 transforaminal epidural injection at that time. In the meantime patient was given a Medrol Dosepak which was called into her local pharmacy with instru ctions side effects aware of discussed as well. ARI MARCUM MD Apr 18, 2020 15:03
== END | disposition home or self-care (01) ==
LOC: PNCL 13:42
PROVIDERS: ATTEND Anesthesiology
DX: M54.5 Low back pain (principal); M79.604 Pain in right leg; I10 Essential (primary) hypertension; M19.90 Unspecified osteoarthritis, unspecified site; M81.0 Age-related osteoporosis without current pathological fracture; I48.91 Unspecified atrial fibrillation; E66.9 Obesity, unspecified; Z87.440 Personal history of urinary (tract) infections; Z79.899 Other long term (current) drug therapy; Z98.890 Other specified postprocedural states; Z88.8 Allergy status to other drugs, medicaments and biological substances
CPT/HCPCS: G0463

== ENCOUNTER → 2020-04-24 | Outpatient (CLI) | payer MEDICARE ==
[2017-08-05 12:10] VITALS: BP 119/86
--- NOTE | 2020-04-24 17:42 | KCIC ---
EXAM: CT Lumbar Spine without IV contrast INDICATION: Reason: LOWER BACK PAIN / Spl. Instructions: / History: TECHNIQUE: Multi-detector row CT images were obtained through the lumbar spine without the use of IV contrast. Post-processing sagittal and coronal reconstructed images were obtained for interpretation . All CT scans performed at this facility utilize dose optimization techniques as appropriate to the exam, including the following: Automated exposure control and adjustment of the mA and/or KV accordin g to patient size (this includes techniques or standardized protocols for targeted exams where dose i s indication/reason for exam). COMPARISON: None FINDINGS: The lowest fully formed disc is referred to as the L5-S1 level. ALIGNMENT: Mild retrolisthesis of L2 on L3 and of L1 on L2 is present along with minimal scoliosis of the upper lumbar spine, apex at L2-L3 and dextroscoliosis of the lower lumbar spine, apex at L4. The re is rightward lateral listhesis of L4-L5 of approximately 12 mm and leftward lateral listhesis of L 3 on L4 of approximately 12 mm. OSSEOUS: Bones are diffusely demineralized. No acute fracture or aggressive appearing bony lesions a re seen. DISC SPACES: Disc space narrowing throughout the lumbar spine is present, most conspicuous at L4-L5 where endplate irregularity is best appreciated. FACET JOINTS: Multilevel facet hypertrophic changes present, most conspicuous at L3-L4 through L5-S1 . SPINAL CANAL: Varying degrees of central canal stenosis, including high-grade central canal stenosis at L2-L3 due to large diffuse disc bulge, ligamentum flavum thickening and facet hypertrophy, at L3- L4 due to a large diffuse disc bulge, ligamentum flavum thickening and facet hypertrophy, and at L4-L 5 where severe central canal stenosis is present due to a large disc osteophyte complex as well as li gamentum flavum thickening and bulky facet hypertrophy. These would be better delineated with MRI or CT lumbar myelography. NEUROFORAMINA: Multilevel foraminal stenosis, including severe left foraminal stenosis at L4-L5 due to marked disc loss of height and facet hypertrophy. SOFT TISSUES: Extensive calcifications in abdominal aorta. Colonic diverticulosis. Pacemaker leads p artially imaged on the informatics application analyst view. IMPRESSION: Multilevel disc and facet degenerative changes in the lumbar spine, worst at L4-L5 where severe centr al canal and left greater than right bilateral foraminal stenosis is present. Electronically signed by: Daniel Weathers MD (04/24/2020 5:39 PM) [id number]
== END ==
LOC: KCIC CT 11:00
PROVIDERS: ATTEND Orthopaedic Surgery
DX: M47.817 Spondylosis without myelopathy or radiculopathy, lumbosacral region (principal); M48.061 Spinal stenosis, lumbar region without neurogenic claudication
CPT/HCPCS: 72131

== ENCOUNTER → 2020-05-05 | Outpatient (CLI) | payer MEDICARE ==
[2017-08-05 12:10] VITALS: BP 119/86
[~2020-05-05] MED LIST changes: +BUPIVACAINE MPF 0.25% 10 ML VIAL. ONE; +IOHEXOL 180 MG/ML 10 ML VIAL. ONE; +methylPREDNISolone ACETATE 80 MG/ML VIAL. ONE
--- NOTE | 2020-05-05 11:51 | PDOC ---
[facility] Note - Pain Clinic Date of Service: DOS: DATE: 05/05/20 TIME: 11:46 Diagnosis: Dx: Lumbar radiculopathy with lumbar degenerative disease and lumbar spinal stenosis History or Present Illness: HPI: 79-year-old female returns for follow-up status post initial evaluation and authorization to hold her Coumadin she is been off this now for 5 days with an INR today 1.3 and PT is 16.2 patient reports still significant pain in the low back and right lower extremity posterior gluteus posterior lateral thigh lateral anterior thigh and anterior medial thigh patient reports is worse with walking standing changing positions standing on her right leg patient reports it awakens her from sleep occasionally she lays on her right side patient reports no new motor or sensory deficits rates her pain is a 9 on scale 10 is worse over the past week 9 on average 8 its least is a 9 today patient describes aching and stabbing on and off in intensity in the right lower extremity and low back. Patient reports no new changes or other complaints. Physical Exam: VS: Blood pressure is 134/82 pulse 77 respirations 18 temperature 98.7 F height is 5 feet 7 inches weight is 206 pounds PE: PHYSICAL EXAMINATION: GENERAL: The patient is awake, alert, oriented, appropriate, very pleasant demeanor HEENT: Shows normocephalic, atraumatic. Extraocular movements are intact and symmetrical. Oral cavity: Mucous membranes moist and pink. NECK: Shows anterior throat supple without palpable lymphadenopathy noted. Swallow reflex symmetrical. CHEST: Shows normal on inspection. Breath sounds are clear bilaterally. HEART: Shows S1, S2 clear. No murmurs auscultated. ABDOMEN: Soft, nontender, nondistended, obese. No palpable organomegaly is noted. BACK: Shows spine grossly in the midline. Normal-appearing cervical lordotic curvature. There is slightly increased thoracic kyphosis, some minor flattening of the lumbar lordotic curvature. Lumbar paraspinous muscles show symmetrical on inspection, on palpation shows some moderate tenderness diffusely throughout the upper, middle and lower distribution of the paraspinous muscles without s pecific trigger points, without radiation of pain. The patient has good rotational motion of the lumbar spine, both laterally as well as extension and flexion without significant difficulty. No tenderness over the spinous processes, sacrum or sacroiliac regions. EXTREMITIES: Lower extremities show deep tendon reflexes 1+ in the patellar and tendo calcaneus tendons. Motor exam is 4 on a scale of 5 with right dorsiflexion, extension, quadriceps and hamstring flexion and 5/5 on the left. Peripheral pulses are 1+ posterior tibial. No peripheral edema is noted bilaterally. Lower extremities are warm and dry to touch, equal in color and appearance. SKIN: Shows warm and dry, good turgor. No edema. No sores, rashes or bruising throughout. Procedure: Procedure: Options were discussed with the patient. Patient chart reviews her current medication regimen updated current review of systems updated today as well. We will proceed with a right L4-5 transforaminal epidural steroid injection today with fluoroscopic guidance. Risks were discussed including but not limited to: Bleeding, infection, possibility of epidural hematoma and subsequent neurological compromise, dural puncture, headaches, spinal cord and/or nerve damage, potential injection of the vertebral artery at that level and permanent ischemic damage, side effects of steroid medication, and poor results regarding pain control. Patient understands and wished to proceed. Patient will return to clinic in approximate 3 weeks for follow-up was counseled to determine activity level and side effects beware. Patient will start her Coumadin again on May 06 tomorrow. Medication Injected: Med Injected: Under sterile prep and drape patient was placed in prone position using C-arm fluoroscopic guidance to identify the L4-5 distribution oblique and slightly cephalad angled C arm. The right L4-5 target was identified and using lidocaine for anesthetizing the skin 22-gauge Dwain pencil point needle was then used to enter the skin and into the subcutaneous tissues using direct C-arm fluoroscopic guidance to guide the needle into the transforaminal aspect of the L4-5 vertebrae this was confirmed with lateral views showing the needle tip in the superior aspect of the paravertebral region. Aspiration was noted to be negative, -1.5 cc of contrast was then injected with good spread both medially into the epidural space as well as laterally along the nerve root without uptake and without distribution and uptake on digital subtraction. At this time, a solution containing 2 cc of 0.25% bupivacaine and 80 mg of Depo-Medrol was then injected. Needle was withdrawn and sterile bandage was applied. Patient tolerated procedure well had no immediate complications Condition at Discharge: Condition at Discharge: Condition at discharge stable, patient tolerated the procedure well and had no complications. ARI MARCUM MD May 05, 2020 11:51
--- NOTE | 2020-05-05 11:52 | PDOC4 ---
PROCEDURE Procedure Patient was consented for right L4-5 transforaminal epidural steroid injection. Risks were discussed including but not limited to: Bleeding, infection, possibility of epidural hematoma and subsequent neurological compromise, dural puncture, headaches, spinal cord and/or nerve damage, side effects of steroid medication, potential injection of the vertebral artery at that level and permanent ischemic damage, and poor results regarding pain control. Patient understands and wished to proceed. Under sterile prep and drape patient was placed in prone position using C-arm fluoroscopic guidance to identify theL 4-5 distribution oblique and slightly cephalad angled C arm. The right L4-5 target was identified and using lidocaine for anesthetizing the skin 22-gauge Dwain pencil point needle was then used to enter the skin and into the subcutaneous tissues using direct C-arm fluoroscopic guidance to guide the needle into the transforaminal aspect of the right L4-5 vertebrae this was confirmed with lateral views showing the needle tip in the superior aspect of the paravertebral region. Aspiration was noted to be negative, -1.5 cc of contrast was then injected with good spread both medially into the epidural space as well as laterally along the nerve root without uptake and without distribution and uptake on digital subtraction. At this time, a solution containing 2 cc of 0.25% bupivacaine and 80 mg of Depo- Medrol was then injected. Needle was withdrawn and sterile bandage was applied. Patient tolerated procedure well had no immediate complications ARI MARCUM MD May 05, 2020 11:52
== END | disposition home or self-care (01) ==
LOC: PNCL 10:05
PROVIDERS: ATTEND Anesthesiology
DX: M51.16 Intervertebral disc disorders with radiculopathy, lumbar region (principal); M48.061 Spinal stenosis, lumbar region without neurogenic claudication; I48.91 Unspecified atrial fibrillation; I10 Essential (primary) hypertension; E66.9 Obesity, unspecified; Z87.440 Personal history of urinary (tract) infections; Z79.899 Other long term (current) drug therapy; Z98.890 Other specified postprocedural states; Z82.49 Family history of ischemic heart disease and other diseases of the circulatory system
CPT/HCPCS: 64483; J1040; J3490; Q9965; 62323; 77002

== ENCOUNTER → 2020-05-05 | Outpatient (CLI) | payer MEDICARE ==
[2017-08-05 12:10] VITALS: BP 119/86
[~2020-05-05] MED LIST changes: -BUPIVACAINE MPF 0.25% 10 ML VIAL. ONE; -IOHEXOL 180 MG/ML 10 ML VIAL. ONE; -methylPREDNISolone ACETATE 80 MG/ML VIAL. ONE
[2020-05-05 10:12] LABS: PROTHROMBIN TIME PATIENT 16.2 SEC (11.7-14.0)
== END | disposition home or self-care (01) ==
LOC: LAB 07:37
PROVIDERS: ATTEND Anesthesiology
DX: I48.91 Unspecified atrial fibrillation (principal); I10 Essential (primary) hypertension; M06.9 Rheumatoid arthritis, unspecified; E66.9 Obesity, unspecified; Z90.710 Acquired absence of both cervix and uterus; Z98.890 Other specified postprocedural states; Z79.899 Other long term (current) drug therapy; Z72.89 Other problems related to lifestyle; Z88.8 Allergy status to other drugs, medicaments and biological substances
CPT/HCPCS: 36415; 85610

== ENCOUNTER → 2020-05-26 | Outpatient (CLI) | payer MEDICARE ==
[2017-08-05 12:10] VITALS: BP 119/86
[2020-05-26 11:08] LABS: BASO % 1 % (0-3); EOS # 0.2 x10^3/uL (0.0-0.7); EOS % 3 % (0-3); HEMATOCRIT 34.2 % (36.0-47.0); HEMOGLOBIN 11.4 g/dL (12.0-15.5); LYMPH # 1.3 x10^3/uL (1.0-4.8); LYMPH % 26 % (24-48); MEAN CORPUSCULAR HEMOGLOBIN 28 pg (25-35); MEAN CORPUSCULAR HGB CONC 33 g/dL (31-37); MEAN CORPUSCULAR VOLUME 84 fL (79-100); MONO # 0.5 x10^3/uL (0.0-1.1); MONO % 10 % (0-9); NEUT # 3.1 x10^3/uL (1.8-7.7); NEUT % 60 % (31-73); PLATELET COUNT 216 x10^3/uL (140-400); RED BLOOD COUNT 4.09 x10^6/uL (3.50-5.40); WHITE BLOOD COUNT 5.1 x10^3/uL (4.0-11.0)
[2020-05-26 11:30] LABS: CALCIUM 8.7 mg/dL (8.5-10.1); CREATININE 1.2 mg/dL (0.6-1.0); GFR 52.2; POTASSIUM 4.2 mmol/L (3.5-5.1)
[2020-05-26 11:31] LABS: CHOLESTEROL/HDL RATIO 2.9
== END ==
LOC: LAB 10:30
PROVIDERS: ATTEND Nurse Practitioner Family
DX: I10 Essential (primary) hypertension (principal)
CPT/HCPCS: 36415; 80048; 80061; 84443; 85025

== ENCOUNTER → 2020-05-26 | Outpatient (CLI) | payer MEDICARE ==
[2017-08-05 12:10] VITALS: BP 119/86
[2020-05-26 11:15] LABS: PROTHROMBIN TIME PATIENT 14.2 SEC (11.7-14.0)
== END ==
LOC: LAB 10:30
PROVIDERS: ATTEND Anesthesiology
DX: Z79.01 Long term (current) use of anticoagulants (principal)
CPT/HCPCS: 36415; 85610

== ENCOUNTER → 2020-05-26 | Outpatient (CLI) | payer MEDICARE ==
[2017-08-05 12:10] VITALS: BP 119/86
[~2020-05-26] MED LIST changes: +BUPIVACAINE MPF 0.25% 10 ML VIAL. ONE; +IOHEXOL 180 MG/ML 10 ML VIAL. ONE; +methylPREDNISolone ACETATE 80 MG/ML VIAL. ONE
--- NOTE | 2020-05-26 12:53 | PDOC4 ---
PROCEDURE Procedure Patient was consented for right L4-5 lumbar transforaminal epidural steroid injection. Risks were discussed including but not limited to: Bleeding, infection, possibility of epidural hematoma and subsequent neurological compromise, dural puncture, headaches, spinal cord and/or nerve damage, side effects of steroid medication, potential injection of the vertebral artery at that level and permanent ischemic damage, and poor results regarding pain control. Patient understands and wished to proceed. Under sterile prep and drape patient was placed in prone position using C-arm fluoroscopic guidance to identify the L4-5 distribution oblique and slightly cephalad angled C arm. The left L4-5 target was identified and using lidocaine for anesthetizing the skin 22-gauge Dwain pencil point needle was then used to enter the skin and into the subcutaneous tissues using direct C-arm fluoroscopic guidance to guide the needle into the transforaminal aspect of the left L4-5 vertebrae this was confirmed with lateral views showing the needle tip in the superior aspect of the paravertebral region. Aspiration was noted to be negative, -1.5 cc of contrast was then injected with good spread both medially into the epidural space as well as laterally along the nerve root without uptake and without distribution and uptake on digital subtraction. At this time, a solution containing 2 cc of 0.25% bupivacaine and 80 mg of Depo-Medrol was then injected. Needle was withdrawn and sterile bandage was applied. Patient tolerated procedure well had no immediate complication ARI MARCUM MD May 26, 2020 12:53
--- NOTE | 2020-05-26 12:53 | PDOC ---
Progress Note - Pain Clinic Date of Service: DOS: DATE: 05/26/20 TIME: 12:49 Diagnosis: Dx: Lumbar radiculopathy with lumbar degenerative disease and lumbar spinal stenosis History or Present Illness: HPI: 79-year-old female returns for follow-up status post right L4-5 transforaminal epidural injection x1. Patient reports about 40% improvement in the low back and right lower extremity still some pain in the leg however the posterior gluteus posterior lateral thigh anterior thigh medial thigh medial lower leg to the knee patient reports is worse with walking standing initially she is doing better for the first few weeks with walking distances doing household activities greater ease and comfort standing for greater periods the pain is returning now fairly significantly in the right lower extremity. Patient reports its a 8 on scale 10 is worst 8 on average and 8 its least is an 8 today. Describes pain as aching and shooting sharp and burning cramping at times in the back and radiating at the right lower extremity can be severe and unbearable at times as well. Patient reports it wakes her from sleep if she lays on her right side otherwise she sleeps fairly well no new motor or sensory deficits no new bowel or bladder incontinence or other complaints at this time. Patient has been off her Coumadin now for 5 days and has a INR today at 1.1 with a PT of 14.2. Physical Exam: VS: Blood pressure is 181/87 pulse 68 respirations 18 temperature 90.5 F height is 5 foot 7 inches weight is 212 pounds PE: PHYSICAL EXAMINATION: GENERAL: The patient is awake, alert, oriented, appropriate, very pleasant demeanor HEENT: Shows normocephalic, atraumatic. Extraocular movements are intact and symmetrical. Oral cavity: Mucous membranes moist and pink. Dentition is intact. NECK: Shows anterior throat supple without palpable lymphadenopathy noted. Swallow reflex symmetrical. CHEST: Shows normal on inspection. Breath sounds are clear bilaterally, no rales rhonchi wheezes auscultated. HEART: Shows S1, S2 clear. No murmurs auscultated. ABDOMEN: Soft, nontender, nondistended, obese. No palpable organomegaly is noted. No rebound or guarding demonstrated. BACK: Shows spine grossly in the midline. Normal-appearing cervical lordotic curvature. There is slightly increased thoracic kyphosis, some minor flattening of the lumbar lordotic curvature. Lumbar paraspinous muscles show symmetrical on inspection, on palpation shows some moderate tenderness diffusely throughout the upper, middle and lower distribution of the paraspinous muscles, but without specific trigger points, without radiation of pain. The patient has good rotational motion of the lumbar spine, both laterally as well as extension and flexion without significant difficulty. EXTREMITIES: Lower extremities show deep tendon reflexes 1+ in the patellar and tendo calcaneus tendons. Motor exam is 4 on a scale of 5 with right dorsiflexion, extension, quadriceps and hamstring flexion and 5/5 on the left. Peripheral pulses are 1+ posterior tibial. No peripheral edema is noted bilaterally. Lower extremities are warm and dry to touch, equal in color and appearance. SKIN: Shows warm and dry, good turgor. No edema. No sores, rashes or bruising throughout. Procedure: Procedure: Options were discussed with the patient. Patient chart was reviewed as her current medication regimen updated current review of systems updated today as well. We will proceed with a second in the series right L4-5 transforaminal lumbar epidural steroid injection today with fluoroscopic guidance. Risks were discussed including but not limited to: Bleeding, infection, possibility of epidural hematoma and subsequent neurological compromise, dural puncture, headaches, spinal cord and/or nerve damage, potential injection into the vertebral artery at that level and permanent ischemic damage, side effects of steroid medication, and poor results regarding pain control. Patient understands and wished to proceed. Patient will return to clinic in approximately 3 weeks for follow-up, was counseled as return appointment activity level and side effects beware. Patient will restart Coumadin tomorrow May 27, 2020. Medication Injected: Med Injected: Under sterile prep and drape patient was placed in prone position using C-arm fluoroscopic guidance to identify the L4-5 distribution oblique and slightly cephalad angled C arm. The left L4-5 target was identified and using lidocaine for anesthetizing the skin 22-gauge Dwain pencil point needle was then used to enter the skin and into the subcutaneous tissues using direct C-arm fluoroscopic guidance to guide the needle into the transforaminal aspect of the left L4-5 vertebrae this was confirmed with lateral views showing the needle tip in the superior aspect of the paravertebral region. Aspiration was noted to be negative, -1.5 cc of contrast was then injected with good spread both medially into the epidural space as well as laterally along the nerve root without uptake and without distribution and uptake on digital subtraction. At this time, a solution containing 2 cc of 0.25% bupivacaine and 80 mg of Depo-Medrol was then injected. Needle was withdrawn and sterile bandage was applied. Patient tolerated procedure well had no immediate complications Condition at Discharge: Condition at Discharge: Condition at discharge stable, patient alert the procedure well and had no complications. ARI MARCUM MD May 26, 2020 12:53
== END | disposition home or self-care (01) ==
LOC: PNCL 11:08
PROVIDERS: ATTEND Anesthesiology
DX: M51.16 Intervertebral disc disorders with radiculopathy, lumbar region (principal); M48.061 Spinal stenosis, lumbar region without neurogenic claudication; I10 Essential (primary) hypertension; I48.91 Unspecified atrial fibrillation; E66.9 Obesity, unspecified; M06.9 Rheumatoid arthritis, unspecified; Z87.440 Personal history of urinary (tract) infections; Z79.899 Other long term (current) drug therapy; Z98.890 Other specified postprocedural states; Z82.49 Family history of ischemic heart disease and other diseases of the circulatory system
CPT/HCPCS: 64483; J1040; J3490; Q9965

== ENCOUNTER → 2021-02-06 | Outpatient (CLI) | payer MEDICARE ==
[2017-08-05 12:10] VITALS: BP 119/86
[~2021-02-06] MED LIST changes: -BUPIVACAINE MPF 0.25% 10 ML VIAL. ONE; +CYCL10TA19 PO; -CYCL10TA2 PO; -IOHEXOL 180 MG/ML 10 ML VIAL. ONE; -methylPREDNISolone ACETATE 80 MG/ML VIAL. ONE
--- NOTE | 2021-02-07 16:47 | CARD ---
MR#: [id number] Date of Study: 02/06/2021 Ordering Physician: CAMMIE CARRASCO, Referring Physician: CAMMIE CARRASCO Tech: Lashell Alonso [facility] APPROVED REPORT EXAM: Two-dimensional and M-mode echocardiogram with Doppler and color Doppler. Other Information Quality : AverageHR: 65bpm Rhythm : NSR INDICATION Cardiac Disease: CAD RISK FACTORS Hypertension Obesity Hyperlipidemia Diabetes 2D DIMENSIONS RVDd4.0 (2.9-3.5cm)Left Atrium(2D)4.7 (1.6-4.0cm) IVSd1.4 (0.7-1.1cm)Aortic Root(2D)3.0 (2.0-3.7cm) LVDd3.9 (3.9-5.9cm)LVOT Diameter2.1 (1.8-2.4cm) PWd1.1 (0.7-1.1cm)LVDs2.5 (2.5-4.0cm) FS (%) 37.9 %SV46.6 ml LVEF(%)68.6 (>50%) Aortic Valve AoV Peak Cullen.1.0cm/sAoV VTI32.2cm AO Peak GR.0.0mmHgLVOT Peak Cullen.132.2cm/s AO Mean GR.5mmHgAVA (VMAX)2.68cm2 Mitral Valve MV E Fdmeswyj340.6cm/sMV DECEL [id number] MV A Tdnaqlmv525.2cm/sE/A Ratio1.3 Pulmonary Valve PV Peak Xkguberi419.8cm/s Tricuspid Valve TR P. Ryvszzuc486gx/sTR Peak Gr.28mmHg LEFT VENTRICLE The left ventricle is normal size. There is mild to moderate concentric left ventricular hypertrophy. The systolic function is mildly impaired. EF 40-45% Septal motion suggestive of conduction defect. T here is mild global hypokinesis. Tissue Doppler imaging reveals moderate left ventricular diastolic d ysfunction. RIGHT VENTRICLE The right ventricle is normal size. The right ventricle is mildly hypertrophied. The right ventricula r systolic function is normal. ATRIA The left atrium is moderately dilated. The right atrium size is normal. The interatrial septum is int act with no evidence for an atrial septal defect or patent foramen ovale as noted on 2-D or Doppler i maging. AORTIC VALVE The aortic valve is mildly thickened but opens well. Doppler and Color Flow revealed trace aortic reg urgitation. There is no significant aortic valvular stenosis. MITRAL VALVE The mitral valve is mildly thickened but opens well. Mitral annular calcification is mild. There is n o evidence of mitral valve prolapse. There is no mitral valve stenosis. Doppler and Color-flow reveal ed mild mitral regurgitation. TRICUSPID VALVE The tricuspid valve is normal in structure and function. Doppler and Color Flow revealed mild tricusp id regurgitation. Estimated PAP 32 mmHg. There is no tricuspid valve stenosis. PULMONIC VALVE Doppler and Color Flow revealed mild to moderate pulmonic valvular regurgitation. There is no pulmoni c valvular stenosis. GREAT VESSELS The aortic root is normal in size. The ascending aorta is normal in size. The IVC is normal in size a nd collapses >50% with inspiration. PERICARDIAL EFFUSION There is no evidence of significant pericardial effusion. Critical Notification Critical Value: No <Conclusion> The systolic function is mildly impaired. EF 40-45% Septal motion suggestive of conduction defect. There is mild global hypokinesis. Doppler and Color-flow revealed mild mitral regurgitation. Signed by : Rodolfo Baird, Electronically Approved : 02/07/2021 16:47:26
== END ==
LOC: ECHO 15:05
PROVIDERS: ATTEND Internal Medicine Cardiovascular Disease
DX: I08.8 Other rheumatic multiple valve diseases (principal); I48.0 Paroxysmal atrial fibrillation; I25.10 Atherosclerotic heart disease of native coronary artery without angina pectoris
CPT/HCPCS: 93306